=== PATIENT | male | born 1965 | race Caucasian/White ===

== ENCOUNTER 2021-07-12 16:15 | Inpatient (IN) | payer MEDICARE ==
[~2021-07-12] VITALS: Ht 190.5 cm; Wt 102.0 kg
[2021-07-12] MEDS: NS 1,000 ML IV SCH (04:23)
[2021-07-12 17:08] LABS: BASO % 0.4 % (0.0-1.0); EOS % 0.2 % (0.0-3.0); HEMATOCRIT 38.8 % (42.0-52.0); HEMOGLOBIN 12.2 g/dl (13.5-17.5); LYMPH # 0.8 10^3/uL (1.5-5.0); LYMPH % 8.2 % (24.0-44.0); MEAN CORPUSCULAR HGB CONC 31.4 g/dl (32.0-36.5); MEAN CORPUSCULAR VOLUME 85.8 fl (80.0-96.0); MONO # 0.7 10^3/uL (0.0-0.8); MONO % 6.9 % (2.0-8.0); NEUTROPHILS # 7.9 10^3/uL (1.5-8.5); NEUTROPHILS % 83.7 % (36.0-66.0); RED BLOOD COUNT 4.52 10^6/uL (4.30-6.10); WHITE BLOOD COUNT 9.5 10^3/uL (4.0-10.0)
[2021-07-12 17:31] LABS: BLOOD UREA NITROGEN 6 MG/DL (7-18); CALCIUM LEVEL 8.6 MG/DL (8.5-10.1); CARBON DIOXIDE LEVEL 18 MEQ/L (21-32); CHLORIDE LEVEL 99 MEQ/L (98-107); CREATININE FOR GFR 1.47 MG/DL (0.70-1.30); ETHYL ALCOHOL (ETHANOL) < 0.003 % (0.000-0.010); GLOMERULAR FILTRATION RATE 52.6 (>56); GLUCOSE, FASTING 215 MG/DL (70-100); POTASSIUM SERUM 3.5 MEQ/L (3.5-5.1); SODIUM LEVEL 134 MEQ/L (136-145)
[2021-07-12 17:36] LABS: PLATELET COUNT, AUTOMATED 85 10^3/uL (150-450)
[2021-07-12 17:51] LABS: ACETAMINOPHEN LEVEL < 2.0 UG/ML (10.0-30.0); SALICYLATE LEVEL < 1.7 MG/DL (5.0-30.0)
[2021-07-12] MEDS ORDERED: LORazepam 2 MG/ML VIAL IV STA ×2 (17:56→18:54)
[2021-07-12] MEDS ORDERED: MULTIVITAMIN -ADULT INJECTION 10 ML, THIAMINE INJection 100 MG, FOLIC ACID 1 MG in NS 1... IV ONE (18:00)
[2021-07-12] MEDS ORDERED: NS 500 ML IV ONE (18:05)
[2021-07-12] MEDS ORDERED: ATEN25TA PO (19:39)
[2021-07-12] MEDS ORDERED: VITA100093 PO (19:39)
[2021-07-12] MEDS ORDERED: HOME MED LIST COMPLETE! XX SCH (19:40)
[2021-07-12] MEDS ORDERED: PROMETHAZINE 25MG/ML 1ML VIAL IV PRN (20:25)
[2021-07-12] MEDS ORDERED: MOM 30ML SUSPENSION UDC PO PRN (20:25)
[2021-07-12] MEDS ORDERED: LORazepam 2 MG TAB PO PRN (20:25)
[2021-07-12] MEDS ORDERED: ACETAMINOPHEN TAB 650MG DOSE (2X325MG) PO PRN (20:25)
[2021-07-12 20:47] LABS: ALBUMIN 3.6 GM/DL (3.2-5.2); ALT/SGPT 80 U/L (12-78); BILIRUBIN,DIRECT 0.8 MG/DL (0.0-0.2); BILIRUBIN,TOTAL 1.4 MG/DL (0.2-1.0)
[2021-07-12 22:02] LABS: RSV AMPLIFICATION NEGATIVE (NEGATIVE)
[2021-07-12] MEDS: THIAMINE 100 MG TAB PO SCH (23:07)
[2021-07-12] MEDS: OXAZEPAM 15MG CAP PO SCH (23:07)
[2021-07-13] VITALS (8 sets, daily range): BP systolic 129–152; BP diastolic 68–96
[2021-07-13] MEDS: NS 1,000 ML IV SCH ×3 (04:49→14:04)
[2021-07-13] MEDS: OXAZEPAM 15MG CAP PO SCH ×4 (05:54→23:57)
[2021-07-13] MEDS ORDERED: HEPARIN SOD (PORCINE) 5000UNITS/ML 1ML VIAL/SYRINGE SC SCH (06:00)
[2021-07-13 07:30] LABS: HEMOGLOBIN 11.6 g/dl (13.5-17.5); MEAN CORPUSCULAR HEMOGLOBIN 26.9 pg (27.0-33.0); MEAN CORPUSCULAR HGB CONC 31.4 g/dl (32.0-36.5); MEAN CORPUSCULAR VOLUME 85.8 fl (80.0-96.0); RED BLOOD COUNT 4.31 10^6/uL (4.30-6.10); WHITE BLOOD COUNT 4.7 10^3/uL (4.0-10.0)
[2021-07-13 07:32] LABS: PLATELET COUNT, AUTOMATED 57 10^3/uL (150-450)
[2021-07-13 08:09] LABS: BLOOD UREA NITROGEN 5 MG/DL (7-18); CARBON DIOXIDE LEVEL 27 MEQ/L (21-32); CHLORIDE LEVEL 106 MEQ/L (98-107); CREATININE FOR GFR 0.97 MG/DL (0.70-1.30); GLOMERULAR FILTRATION RATE > 60.0 (>56); GLUCOSE, FASTING 101 MG/DL (70-100); POTASSIUM SERUM 3.3 MEQ/L (3.5-5.1); SODIUM LEVEL 139 MEQ/L (136-145)
[2021-07-13 08:10] LABS: ALBUMIN 3.3 GM/DL (3.2-5.2); ALT/SGPT 69 U/L (12-78); BILIRUBIN,TOTAL 2.2 MG/DL (0.2-1.0); CALCIUM LEVEL 8.5 MG/DL (8.5-10.1); TOTAL PROTEIN 7.4 GM/DL (6.4-8.2)
[2021-07-13] MEDS: FOLIC ACID 1 MG TAB PO SCH (08:37)
[2021-07-13] MEDS: THIAMINE 100 MG TAB PO SCH ×2 (08:37→20:43)
[2021-07-13] MEDS: MULTIVITAMINS/MINERALS THERAP 1 TAB PO SCH (08:37)
[2021-07-13] MEDS ORDERED: POTASSIUM CHLORIDE 10MEQ SR TABLET PO ONE (09:35)
[2021-07-13 10:25] LABS: HEMOGLOBIN A1c 5.5 %
[2021-07-14 00:29] VITALS: BP 171/106
[2021-07-14 00:30] VITALS: BP 171/106
[2021-07-14] MEDS ORDERED: LORazepam 0.5 MG TAB PO ONE (00:35)
[2021-07-14 01:19] VITALS: BP 148/88
[2021-07-14] MEDS: atenoloL 25 MG TAB PO SCH ×2 (01:19→07:44)
[2021-07-14 01:21] VITALS: BP 148/88
[2021-07-14] MEDS: OXAZEPAM 15MG CAP PO SCH (05:31)
[2021-07-14 05:42] VITALS: BP 120/65
[2021-07-14 06:21] LABS: HEMATOCRIT 34.7 % (42.0-52.0); HEMOGLOBIN 10.8 g/dl (13.5-17.5); MEAN CORPUSCULAR HEMOGLOBIN 26.9 pg (27.0-33.0); MEAN CORPUSCULAR HGB CONC 31.1 g/dl (32.0-36.5); MEAN CORPUSCULAR VOLUME 86.5 fl (80.0-96.0); RED BLOOD COUNT 4.01 10^6/uL (4.30-6.10); WHITE BLOOD COUNT 4.2 10^3/uL (4.0-10.0)
[2021-07-14 06:23] LABS: PLATELET COUNT, AUTOMATED 54 10^3/uL (150-450)
[2021-07-14 06:46] LABS: ALT/SGPT 56 U/L (12-78); BILIRUBIN,TOTAL 1.7 MG/DL (0.2-1.0); BLOOD UREA NITROGEN 4 MG/DL (7-18); CALCIUM LEVEL 8.8 MG/DL (8.5-10.1); CARBON DIOXIDE LEVEL 24 MEQ/L (21-32); CHLORIDE LEVEL 107 MEQ/L (98-107); GLOMERULAR FILTRATION RATE > 60.0 (>56); GLUCOSE, FASTING 82 MG/DL (70-100); POTASSIUM SERUM 3.5 MEQ/L (3.5-5.1); SODIUM LEVEL 141 MEQ/L (136-145); TOTAL PROTEIN 6.9 GM/DL (6.4-8.2)
[2021-07-14] MEDS ORDERED: FOLI1TAB11 PO ×2 (07:37→07:40)
[2021-07-14] MEDS ORDERED: OXAZ15CA4 PO ×2 (07:37→07:40)
[2021-07-14] MEDS ORDERED: VITMTA PO ×2 (07:37→07:40)
[2021-07-14] MEDS ORDERED: THIA100TA PO ×2 (07:37→07:40)
[2021-07-14] MEDS: THIAMINE 100 MG TAB PO SCH (08:04)
[2021-07-14] MEDS: FOLIC ACID 1 MG TAB PO SCH (08:04)
[2021-07-14] MEDS: MULTIVITAMINS/MINERALS THERAP 1 TAB PO SCH (08:04)
[2021-07-14 08:07] VITALS: BP 136/84
[2021-07-14] MEDS ORDERED: atenoloL 25 MG TAB PO SCH (09:00)
== END 2021-07-14 09:16 | disposition left against medical advice (07) | DRG 894 ==
LOC: M ED 16:15 → M ED INP 20:23 → ENRESERV 07-13 03:58 → M PCU 07-13 05:30 → M MSPAV 07-13 17:06
PROVIDERS: ADMIT Family Medicine; ATTEND General Practice
DX: F10.139 Alcohol abuse with withdrawal, unspecified (principal); N17.9 Acute kidney failure, unspecified; G40.409 Other generalized epilepsy and epileptic syndromes, not intractable, without status epilepticus; I10 Essential (primary) hypertension; Z79.899 Other long term (current) drug therapy; Z91.19 Patient's noncompliance with other medical treatment and regimen